=== PATIENT | male | born 1990 | race Caucasian/White ===

== ENCOUNTER 2019-11-17 12:33 | Emergency (ER) | payer BC, OTHER ==
[~2019-11-17] VITALS: Ht 177.8 cm; Wt 86.2 kg
--- NOTE | 2019-11-17 12:43 | NUR ---
URINE SPECIMEN COLLECTED AND SENT TO LAB.
[2019-11-17 12:44] VITALS: BP 144/108
--- NOTE | 2019-11-17 12:50 | NUR ---
SEEN AND EXAMINED BY
--- NOTE | 2019-11-17 13:05 | NUR ---
[employer]IPAL AT BEDSIDE FOR XRAY.
--- NOTE | 2019-11-17 13:26 | NUR ---
Patient discharged to home in stable condition. Written and verbal after care instructions given. Patient verbalizes understanding of instruction.
== END 2019-11-17 13:27 | disposition home or self-care (01) ==
LOC: ER 12:37
DX: K59.00 Constipation, unspecified (principal)
CPT/HCPCS: 74018